=== PATIENT | male | born 1975 | race Caucasian/White ===

== ENCOUNTER 2025-02-28 02:20 | Outpatient (CLI) | payer BC, SELFPAY ==
--- NOTE | 2025-02-28 08:15 | DI.RAD_ITS ---
Exam(s) XR FOOT LT COMPLETE EXAM: XR FOOT LT COMPLETE CLINICAL HISTORY: Left foot pain, M79.672. TECHNIQUE: 2D digital imaging was performed. Three views. COMPARISON: CR XR FOOT RT COMPLETE from 02/28/2025 FINDINGS: BONES: No acute fracture is present. No bony destructive lesion is seen. Ossicles lateral to the calcaneus. Spurring at the Achilles insertion on the calcaneus JOINTS: No dislocation present. SOFT TISSUE: Swelling lateral to 5th MTP joint. IMPRESSION: Heel spur. Lateral soft tissue swelling. DATA REPOSITORY: RADIATION DOSE DELIVERED:
--- NOTE | 2025-02-28 08:15 | DI.RAD_ITS ---
Exam(s) XR FOOT RT COMPLETE EXAM: XR FOOT RT COMPLETE CLINICAL HISTORY: Right foot pain, M79.671. TECHNIQUE: 2D digital imaging was performed. Three views. COMPARISON: No exams were available for comparison FINDINGS: BONES: No acute fracture is present. No bony destructive lesion is seen. Spurring at the Achilles insertion on the calcaneus. Tiny plantar calcaneal spur. Ossicles adjacent to the base of the 5th metatarsal and lateral to the calcaneus. JOINTS: No dislocation present. Hammertoe deformities. SOFT TISSUE: Normal. IMPRESSION: Heel spur. Hammertoe deformities. DATA REPOSITORY: RADIATION DOSE DELIVERED:
== END 2025-02-28 02:40 ==
LOC: DI 02:20
PROVIDERS: PCP Specialist/Technologist Athletic Trainer; Visit Provider Podiatrist
DX: M77.32 Calcaneal spur, left foot (principal); M79.671 Pain in right foot; M77.31 Calcaneal spur, right foot; M79.672 Pain in left foot
CPT/HCPCS: 73630